=== PATIENT | female | born 1970 | race Caucasian/White ===

== ENCOUNTER → 2020-06-01 | Outpatient (CLI) | payer BC ==
--- NOTE | 2020-06-01 17:44 | US ---
EXAMINATION TYPE: US venous doppler duplex LE RT DATE OF EXAM: 06/01/2020 5:24 PM COMPARISON: NONE CLINICAL HISTORY: I83.11 varicose vein right lower. Inflammation in right leg x 4 days. No hx of DVT. Patient does not take blood thinner. SIDE PERFORMED: Right TECHNIQUE: The lower extremity deep venous system is examined utilizing real time linear array sonog karen with graded compression, doppler sonography and color-flow sonography. VESSELS IMAGED: Common Femoral Vein Deep Femoral Vein Greater Saphenous Vein * Femoral Vein Popliteal Vein Small Saphenous Vein * Proximal Calf Veins (* superficial vessels) Right Leg: No evidence of DVT in veins imaged at this time from prox calf veins to CFV. Within the r ight medial calf, below the knee, there appears to be superficial tortuous areas that do not compress or show color flow. GSV below the knee appears to have internal echoes and is noncompressible. These areas are at the patient's area of concern. IMPRESSION: There is evidence of some superficial venous thrombus involving the long saphenous vein. No evidence of deep vein thrombosis.
== END | disposition home or self-care (01) ==
LOC: RADUSWWP 16:55
PROVIDERS: ATTEND Family Medicine
DX: I83.11 Varicose veins of right lower extremity with inflammation (principal)